=== PATIENT | male | born 1950 | race Caucasian/White ===

== ENCOUNTER → 2017-03-31 | Outpatient (CLI) | payer BC ==
[~2017-03-31] MED LIST: ASCO500T16 PO; ASPI81TA21 PO; CHOL100010 PO; DIPH-437 PO; FINA5TAB PO; MULTTAB58 PO; NAPR220T40 PO; TERA1CAP63 PO; WLLSR/150 PO
[2017-03-31 12:46] LABS: % FREE PSA 6.7 %; FREE PSA 0.29 ng/ml; PROSTATE SPECIFIC ANTIGEN 4.31 ng/ml (0.000-4.000)
--- NOTE | 2017-04-04 11:39 | CODING QUERY MEDICAL NECESSITY ---
SUPPORTING DIAGNOSIS NEEDED A supporting diagnosis is required for the test/procedure performed on this patient in order for us to be reimbursed by the patient's insurance. Please provide a supporting diagnosis for the following test/procedure listed below next to the test name along with your signature. *If there is no additional diagnosis for this patient that would support the following test/procedure please document that below next to the test/procedure. Test(s)/Procedure(s) that require a supporting diagnosis: * PSA DIAGNOSIS: Provider Signature: Date: Thank you Araceli [employer] Information Management Once completed, please kindly fax back to [phone] For questions please call [phone]
== END | disposition home or self-care (01) ==
LOC: C.LAB1850 09:30
PROVIDERS: ATTEND Family Medicine
DX: G47.00 Insomnia, unspecified (principal); E78.5 Hyperlipidemia, unspecified; I10 Essential (primary) hypertension; M19.90 Unspecified osteoarthritis, unspecified site

== ENCOUNTER → 2017-05-11 | Outpatient (CLI) | payer BC ==
--- NOTE | 2017-05-11 14:37 | DIAGNOSTIC IMAGING REPORT ---
CHEST 2 VIEWS ROUTINE HISTORY: COUGH COMPARISON: Chest 01/13/2011. FINDINGS: The lungs are clear. Cardiac silhouette is normal in size. No pleural effusions. No pneumothorax. IMPRESSION: No acute process. Electronically signed by: Diogo Bauer M.D. 05/11/2017 2:36 PM Dictated Date/Time: 05/11/2017 2:34 PM
== END | disposition home or self-care (01) ==
LOC: C.RAD1850 14:10
PROVIDERS: ATTEND Student in an Organized Health Care Education/Training Program
DX: R05 Cough (principal)

== ENCOUNTER → 2017-06-20 | Outpatient (CLI) | payer BC ==
--- NOTE | 2017-06-20 15:01 | DIAGNOSTIC IMAGING REPORT ---
CT LUNG SCREENING, LOW DOSE WITH COMPUTER-AIDED DETECTION (CAD) CLINICAL HISTORY: Smoking history. Lung cancer screening. COMPARISON STUDY: Chest CT dated 05/12/2012. CT DOSE: 79.80 mGycm TECHNIQUE: Low-dose helical CT was acquired without intravenous contrast from lung apices to bases and reconstructed at 2.5 mm every 2 mm. CAD was utilized for this study. A dose lowering technique was utilized adhering to the principles of ALARA. FINDINGS: Thyroid: Imaged portions of the thyroid gland are normal in appearance. Thoracic aorta: The thoracic aorta is normal in course and caliber, noting standard 3 vessel arch anatomy. Heart: The heart is normal in size and without pericardial effusion. There are coronary artery calcifications. The main pulmonary arteries appear enlarged suggesting pulmonary artery hypertension. Lungs and pleural spaces: The trachea and central airways are clear. There is a 2.0 cm focus of groundglass consolidation in the right lower lobe seen on image #184. There are surrounding tree-in-bud airspace opacities. Scattered tree-in-bud airspace opacities are also seen in the right upper lobe (image #115). Foci of linear scarring versus atelectasis are present at both lung bases. No lobar consolidation or pleural effusion is identified. A 2 mm nodule in the right middle lobe on image #170 is unchanged from 2012 and of doubtful significance. Mediastinum: There is no mediastinal lymphadenopathy. Ita: Not well assessed without IV contrast. Axilla: Clear. Upper abdomen: There is a small hiatal hernia. Partially visualized upper abdominal viscera is otherwise grossly within normal limits noting significant streak artifact. Skeletal structures: The skeletal structures appear osteopenic. Degenerative changes noted throughout the thoracic spine. Healed right-sided rib and sternal fractures are noted. There are no lytic or blastic osseous lesions. IMPRESSION: 1. There is a 2.0 cm focus of groundglass opacification the right lower lobe. This is pathologically indeterminant, and an infectious/inflammatory pneumonitis is favored due to additional foci of surrounding tree-in-bud nodularity. Low-grade neoplasm could also have this appearance and a repeat diagnostic chest CT in 3 months time is recommended for reassessment. 2. Additional tiny foci of tree-in-bud nodularity are seen in the right upper lobe and also likely on an infectious/inflammatory basis. 3. Additional findings as above. CAD FINDINGS: Nodule 1 Category: 3 Nodule 1 Status: Baseline Nodule 1 Description: Non-solid Nodule 1 Lesion ID: 6 Nodule 1 Slice Number: 52 Nodule 1 Volume (mm3): 1125 Nodule 1 Major Tyrone mm: 20.0 Nodule 1 Minor Tyrone mm: 10.0 Overall Lung RADS Category: 3 Lung RADS Management Recommendation: Return for diagnostic CT scan in 3 months time. If the groundglass lesion resolves then return to annual screening. Lung RADS Follow Up Date: 2017-12-19 Lung RADS Nodule ID: [id number] Electronically signed by: Sunil Avila M.D. 06/20/2017 2:59 PM Dictated Date/Time: 06/20/2017 2:44 PM
== END | disposition home or self-care (01) ==
LOC: C.CTS 13:25
PROVIDERS: ATTEND Student in an Organized Health Care Education/Training Program
DX: Z12.2 Encounter for screening for malignant neoplasm of respiratory organs (principal); Z87.891 Personal history of nicotine dependence; R91.8 Other nonspecific abnormal finding of lung field

== ENCOUNTER → 2017-09-23 | Outpatient (CLI) | payer BC ==
--- NOTE | 2017-09-23 10:41 | DIAGNOSTIC IMAGING REPORT ---
CT SCAN OF THE CHEST WITHOUT IV CONTRAST CLINICAL HISTORY: Follow-up groundglass lesions. COMPARISON STUDY: Chest CT scans dated 05/12/2012 and 06/20/2017. TECHNIQUE: CT scan of the thorax was performed from the thoracic inlet to the upper abdomen. Images are reviewed in the axial, sagittal, and coronal planes. IV contrast was not administered for this examination as per the referring clinician. A dose lowering technique was utilized adhering to the principles of ALARA. CT DOSE: 584.65 mGy.cm FINDINGS: Thyroid: Imaged portions of the thyroid gland are normal in size and attenuation. Thoracic aorta: There is mild atherosclerotic calcification of the thoracic aorta, which is normal in caliber and demonstrates standard 3-vessel arch anatomy. Heart: The heart is normal in size and without pericardial effusion. The coronary arteries are densely calcified. Lungs and pleural spaces: There is no lobar consolidation or pleural effusion. The groundglass focus in the right lower lobe has almost completely resolved from 06/20/2017. Mild residual groundglass opacities seen on image #180. Right upper lobe foci of ground glass change have also almost completely resolved. A 2 mm right middle lobe pulmonary nodule on image were 182 is unchanged dating back to 2011 and of doubtful significance. Mediastinum: There is no mediastinal lymphadenopathy. Ita: Not well assessed without IV contrast. Axillae: There is no axillary lymphadenopathy. Upper abdomen: A 1.6 cm cyst is seen in the right hepatic lobe. Partially visualized upper abdominal viscera is otherwise within normal limits. Skeletal structures: Mild degenerative change and scoliosis are noted in the thoracic spine. No lytic or blastic bony lesions are seen. IMPRESSION: 1. The large groundglass focus in the right lower lobe has significantly cleared as compared to 06/20/2017 and is likely on an inflammatory basis. An additional 3-6 month follow-up is recommended to document complete resolution. 2. Small chronic vascular stent right upper lobe have also almost completely resolved from previous. These should also be reassessed at follow-up. 3. There is no lobar consolidation or pleural effusion. 4. No new pulmonary lesion is identified. Electronically signed by: Sunil Avila M.D. 09/23/2017 10:40 AM Dictated Date/Time: 09/23/2017 10:32 AM
== END | disposition home or self-care (01) ==
LOC: C.CTS 10:09
PROVIDERS: ATTEND Physician Assistant
DX: R91.8 Other nonspecific abnormal finding of lung field (principal)

== ENCOUNTER → 2017-10-14 | Outpatient (CLI) | payer BC ==
--- NOTE | 2017-10-14 09:46 | DIAGNOSTIC IMAGING REPORT ---
CHEST 2 VIEWS ROUTINE CLINICAL HISTORY: R05 [id number] COMPARISON STUDY: 05/11/2017 FINDINGS: The cardiac and mediastinal contours are normal. There is no evidence of focal pulmonary consolidation. There is no evidence of failure. No pleural effusions are visualized.[ IMPRESSION: No active disease in the chest. Electronically signed by: Agusto Marquez M.D. 10/14/2017 9:45 AM Dictated Date/Time: 10/14/2017 9:44 AM
[2017-10-14 11:59] LABS: INFLUENZA A PCR Neg for Influ A (NEG); INFLUENZA B PCR POS for Influ B (NEG)
== END | disposition home or self-care (01) ==
LOC: C.RAD1850 09:20
PROVIDERS: ATTEND Physician Assistant
DX: R05 Cough (principal)

== ENCOUNTER → 2017-10-25 | Outpatient (CLI) | payer BC ==
[~2017-10-25] MED LIST changes: +ASPI-319 PO; -ASPI81TA21 PO
== END | disposition home or self-care (01) ==
LOC: C.LAB1850 10:26
PROVIDERS: ATTEND Urology
DX: N40.1 Benign prostatic hyperplasia with lower urinary tract symptoms (principal); Z11.59 Encounter for screening for other viral diseases